=== PATIENT | male | born 2005 | race Hispanic/Latino ===

== ENCOUNTER 2025-04-06 19:53 | Emergency (ER) | payer MEDICAID, SELFPAY ==
--- NOTE | ~2025-04-06 | XR_ITS ---
CHEST RADIOGRAPH, PA AND LATERAL CLINICAL HISTORY: Chest pain . COMPARISON: None available TECHNIQUE: PA and lateral views of the chest. FINDINGS The cardiomediastinal silhouette is unremarkable. Increased interstitial markings are identified within the superior segment of the right lower lobe. Peribronchial thickening is also noted. The remainder of the lungs are clear. IMPRESSION: Increased interstitial markings within the superior segment of the right lower lobe. Lateral view is nondiagnostic. The remainder of the lungs are clear. Reviewed, dictated and finalized at location A.
[2025-04-06 20:00] VITALS: BP 133/98; PULSE 96; RESP 18; TEMP 36.3; O2SAT 100
--- NOTE | 2025-04-06 20:08 | ECG_ITS ---
Test Date: 2025-04-06 19:59:43 Measurements Intervals [place] Rate: 95 P: 44 CT: 158 QRS: 62 QRSD: 86 T: 32 QT: 318 QTc: 401 Interpretive Statements SINUS RHYTHM NORMAL ECG No previous ECG available for comparison Electronically Signed On 04-07-2025 08:08:24 CDT by Ej Park D.O.
[2025-04-06 20:29] LABS: Hematocrit 43.4 % (42.0-52.0); Hemoglobin 14.6 g/dL (14.0-18.0); Immature Granulocyte Percent A 0.3 % (0-0.5); Lymphocytes Absolute Auto 4.59 K/mm3 (0.9-3.2); Mean Corpuscular HGB Conc 33.6 g/dl (32-36); Mean Corpuscular Hemoglobin 28.3 pg (26-34); Mean Corpuscular Volume 84.1 fl (80-100); Nucleated Red Blood Cells Absolute Auto 0.000 K/mm3 (0.0-0.012); Nucleated Red Blood Cells Perc 0.0 % (0.0-0.2); Platelet Count Result 271 k/mm3 (150-375); Red Blood Count 5.16 M/mm3 (4.6-6.20); White Blood Count 11.7 K/mm3 (4.5-10.0)
[2025-04-06 20:41] LABS: INR 1.1; Partial Thromboplastin Time 30.5 Seconds (22.3-36.8); Prothrombin Time 14.1 Seconds (11.1-14.7)
[2025-04-06 20:52] LABS: Alanine Aminotransferase 155 U/L (6-50); Albumin Level 4.4 g/dL (3.5-5.1); Alkaline Phosphatase 87 U/L (38-126); Anion Gap 10 mmol/L (4-12); Aspartate Amino Transferase 73 U/L (17-59); Bilirubin,Total 0.4 mg/dL (0.2-1.3); Blood Urea Nitrogen 15 mg/dL (9-20); Calcium 9.1 mg/dL (8.4-10.2); Carbon Dioxide 24 mmol/L (22-30); Chloride 103 mmol/L (98-107); Estimated Glomerular Filt Rate > 60; Glucose 104 mg/dL (65-110); Lipase 49 U/L (23-300); Potassium 4.0 mmol/L (3.4-5.0); Sodium 137 mmol/L (137-145); Total Protein 7.7 g/dL (6.3-8.2)
[2025-04-06 20:59] LABS: Troponin I < 0.012 ng/mL (0.000-0.034)
[2025-04-06 21:52] VITALS: BP 135/81; PULSE 93; RESP 17; O2SAT 99
--- NOTE | 2025-04-06 22:38 | ED_ITS ---
HPI - Chest Pain General Chief Complaint: Chest Pain Stated Complaint: Chest pain Time Seen by Provider: 04/06/25 22:06 History of Present Illness HPI narrative: 20-year-old otherwise healthy male presenting to the emergency room with left- sided chest pain in the center of his sternum near the left side. Worse with palpation and range in his left shoulder. No traumatic injuries. No pain with deep breathing or position changes, no pleurisy pain shortness a breath. Nausea, vomiting abdominal pain, back pain, fever chills. Pain does not radiate anywhere. Pain has been intermittent for last week and describes this sharp stabbing sensation. Has not tried any medications for symptom control. Related Data Allergies Allergy/AdvReac Type Severity Reaction Status Date / Time Iodinated Contrast Media Allergy Unknown Verified 04/06/25 21:56 penicillin G Allergy Unknown Verified 04/06/25 21:56 Review of Systems 2 Review of Systems: As reviewed above in HPI Exam 2 Narrative: GENERAL: [Well-appearing, well-nourished, and in no acute distress.] HEAD: [Normocephalic, atraumatic.] EYES: [PERRLA and EOMI.] ENT: Nares clear, no rhinorrhea or epistaxis. Mucous membranes moist. NECK: Supple. CHEST: Clear to auscultation without any respiratory distress. He has reproducible pain with palpation left side of his sternal bone with reproduced pain in this area when ranging his left shoulder and crossing his arms. No shoulder pain. HEART: [Regular rate and rhythm]. No murmur heard. [Normal peripheral pulses.] ABDOMEN: [Soft, nondistended], [nontender], [No rigidity or guarding] EXTREMITIES: Normal range of motion. [No edema.] SKIN: Warm, dry, no rash. NEURO: [No focal deficits]. Alert and oriented [x3.] PSYCH: [Normal mood and affect.] Course Vital Signs Vital signs: Vital Signs Temperature 36.3 C L 04/06/25 20:00 Pulse Rate 96 04/06/25 20:00 Respiratory Rate 18 04/06/25 20:00 Blood Pressure 133/98 H 04/06/25 20:00 Pulse Oximetry 100 04/06/25 20:00 Oxygen Delivery Room Air 04/06/25 20:00 Temperature 36.3 C L 04/06/25 20:00 Pulse Rate 93 04/06/25 21:52 Respiratory Rate 17 04/06/25 21:52 Blood Pressure 135/81 04/06/25 21:52 Pulse Oximetry 99 04/06/25 21:52 Oxygen Delivery Room Air 04/06/25 21:52 MDM - Chest Pain MDM Narrative Medical decision making narrative: 20-year-old otherwise healthy male presenting to the emergency room with left- sided chest pain in the center of his sternum near the left side. Worse with palpation and range in his left shoulder. No traumatic injuries. No pain with deep breathing or position changes, no pleurisy pain shortness a breath. Nausea, vomiting abdominal pain, back pain, fever chills. Pain does not radiate anywhere. Pain has been intermittent for last week and describes this sharp stabbing sensation. Has not tried any medications for symptom control. Clear to auscultation without any respiratory distress. He has reproducible pain with palpation left side of his sternal bone with reproduced pain in this area when ranging his left shoulder and crossing his arms. No shoulder pain. Patient is hemodynamically stable with normal vital signs here. Examination consistent with musculoskeletal chest pain likely costochondritis. Cardiac workup ordered in triage including troponin, EKG and chest x-ray. Workup was unrevealing. No acute findings. Troponin is negative. Chest x-ray without any signs of consolidation, pneumothorax or significant pneumonia. Patient was given Toradol for musculoskeletal chest pain and discharged home with pain regimen and follow-up instructions with his PCP. Medical Records Data Attestation: I reviewed the patient's medical records. Lab Data Attestation: I reviewed the patient's lab results. 04/06/25 20:22 04/06/25 20:22 Labs: Lab Results 04/06/25 Range/Units 20:22 WBC 11.7 H (4.5-10.0) K/mm3 RBC 5.16 (4.6-6.20) M/mm3 Hgb 14.6 (14.0-18.0) g/dL Hct 43.4 (42.0-52.0) % MCV 84.1 (80-100) fl MCH 28.3 (26-34) pg MCHC 33.6 (32-36) g/dl RDW 12.1 (11.5-14.5) % Plt Count 271 (150-375) k/mm3 MPV 12.1 H (7.4-10.4) fl Immature Gran % (Auto) 0.3 (0-0.5) % Neut % (Auto) 51.4 (45.5-73.1) % Lymph % (Auto) 39.2 (18.3-44.2) % [place] % (Auto) 6.3 (2.6-8.5) % Eos % (Auto) 2.3 (0-4.4) % Baso % (Auto) 0.5 (0.2-1.2) % Lymph # (Auto) 4.59 H (0.9-3.2) K/mm3 [place] # (Auto) 0.7 H (0.1-0.6) K/mm3 Eos # (Auto) 0.3 (0-0.3) K/mm3 Baso # (Auto) 0.1 (0.0-0.1) K/mm3 Abs Immat Gran (auto) 0.03 (0.00-0.031) K/mm3 Absolute Neuts (auto) 6.0 (1.3-6.7) K/mm3 Absolute Nucleated RBC 0.000 (0.0-0.012) K/mm3 Nucleated RBC % 0.0 (0.0-0.2) % PT 14.1 (11.1-14.7) Seconds INR 1.1 APTT 30.5 (22.3-36.8) Seconds Sodium 137 (137-145) mmol/L Potassium 4.0 (3.4-5.0) mmol/L Chloride 103 (98-107) mmol/L Carbon Dioxide 24 (22-30) mmol/L Anion Gap 10 (4-12) mmol/L BUN 15 (9-20) mg/dL Creatinine 0.70 (0.7-1.3) mg/dL Estim Creat Clear Calc Not Reportable Estimated GFR > 60 (59 - ) Glucose 104 (65-110) mg/dL Calcium 9.1 (8.4-10.2) mg/dL Total Bilirubin 0.4 (0.2-1.3) mg/dL AST 73 H (17-59) U/L ALT 155 H (6-50) U/L Alkaline Phosphatase 87 (38-126) U/L Troponin I < 0.012 (0.000-0.034) ng/mL Total Protein 7.7 (6.3-8.2) g/dL Albumin 4.4 (3.5-5.1) g/dL Lipase 49 (23-300) U/L Imaging Data Attestation: I personally reviewed and interpreted this imaging study as follows: My impression: Impressions Chest X-Ray 04/06/25 20:55 IMPRESSION: Increased interstitial markings within the superior segment of the right lower lobe. Lateral view is nondiagnostic. The remainder of the lungs are clear. Discharge Plan Discharge Clinical Impression: Chest pain, musculoskeletal, Costalchondritis Patient Disposition: Home Condition: Stable Instructions: Antibiotic Form, Costochondritis (ED), Chest Wall Pain (ED) Additional Instructions: No signs of any cardiac disease or damage. Symptoms consistent with costochondritis on the left side of your chest wall. We will send you home with anti-inflammatories and lidocaine patch. Return with any emergent concerns otherwise follow-up with regular doctor. Patient Language: French Prescriptions: New ibuprofen 800 mg tablet 800 mg PO TID PRN (Reason: pain) Qty: 30 0RF acetaminophen [Tylenol Extra Strength] 500 mg tablet 1,000 mg PO TID PRN (Reason: pain) Qty: 30 0RF lidocaine 5 % adhesive patch,medicated 1 patch topical DAILY Qty: 15 0RF Rx Instructions: leave on most painful area for up to 12 hrs Follow-up/Referrals: PHYSICIAN,FLATWORK PRESSER [Primary Care Provider] - Time of Disposition: 22:43
[2025-04-06] MEDS: KETOROLAC 10 MG TABLET PO (22:41)
[2025-04-06 22:52] VITALS: BP 148/82; PULSE 89; RESP 24; O2SAT 100
== END 2025-04-06 22:52 | disposition home or self-care (01) ==
PROVIDERS: Emergency Provider Student in an Organized Health Care Education/Training Program
DX: M94.0 Chondrocostal junction syndrome [Tietze] (principal)
CPT/HCPCS: 36415; 71046; 80053; 83690; 84484; 85025; 85610; 85730; 93005; 99284; A9270